=== PATIENT | male | born 1960 | race Caucasian/White ===

== ENCOUNTER 2018-03-09 06:36 | Day surgery (SDC) | payer MEDICARE ==
[2018-03-09] MEDS ORDERED: Lactated Ringers 1,000 ML IV SCH (06:45)
[2018-03-09] MEDS ORDERED: Midazolam 1 MG/ML 2 ML SDV IV ONE (08:12)
[2018-03-09] MEDS ORDERED: Propofol 200 MG/20 ML SDV IV ONE (08:12)
--- NOTE | 2018-03-09 08:16 | PCM.HPR ---
H & P Addendum review - H & P Addendum Review Date of Original H & P: 03/01/18 Date Reviewed: 03/09/18 Time Reviewed: 08:00 Patient was Examined: No Changes
--- NOTE | 2018-03-09 08:35 | PCM.OPNOTE ---
- General Post-Op/Procedure Note Date of Surgery/Procedure: 03/09/18 Operative Procedure(s): Colonoscopy Findings: Diverticulosis Pre Op Diagnosis: Hx Colon Polyps; Tics Post-Op Diagnosis: Same Anesthesia Technique: MAC Primary Surgeon: Husam Bassett Anesthesia Provider: Delia Tipton Complications: None Condition: Good
--- NOTE | 2018-03-09 09:24 | OR ---
DATE OF OPERATION: 03/09/2018 SURGEON: Husam Bassett MD PREOPERATIVE DIAGNOSES: 1. History of colon polyps. 2. Diverticulosis. POSTOPERATIVE DIAGNOSIS: Diverticulosis. PROCEDURE: Colonoscopy. ANESTHESIA: IV sedation. DESCRIPTION OF PROCEDURE: The patient was brought to the procedure room, where he was placed on his left side and IV sedation administered. Digital rectal exam was performed, which was normal. The colonoscope was inserted and advanced to the level of the cecum without difficulty. Cecal position was confirmed by identifying the appendiceal lumen and ileocecal valve. Prep was good with some thick liquid stool remaining that was mostly irrigated and suctioned. Upon withdrawing the scope, he had diverticulosis throughout the entire colon, but most notable in the sigmoid colon. There were no polyps noted. Rectum was normal and retroflexion was normal. Air was removed, and the scope withdrawn. The patient tolerated the procedure well and returned to Recovery in a stable condition. Recommend surveillance colonoscopy in 5 years. /[id number] CHIQUITA/JEREL
== END 2018-03-09 09:46 | disposition home or self-care (01) ==
LOC: FB.SDS 06:36
PROVIDERS: ATTEND Surgery
DX: Z12.11 Encounter for screening for malignant neoplasm of colon (principal); K57.30 Diverticulosis of large intestine without perforation or abscess without bleeding; I10 Essential (primary) hypertension; E55.9 Vitamin D deficiency, unspecified; F32.9 Major depressive disorder, single episode, unspecified; E78.1 Pure hyperglyceridemia; M81.0 Age-related osteoporosis without current pathological fracture; G62.9 Polyneuropathy, unspecified; J45.30 Mild persistent asthma, uncomplicated; K21.9 Gastro-esophageal reflux disease without esophagitis; M19.079 Primary osteoarthritis, unspecified ankle and foot; Q21.1 Atrial septal defect; I48.0 Paroxysmal atrial fibrillation; Z79.82 Long term (current) use of aspirin; Z79.83 Long term (current) use of bisphosphonates; Z79.899 Other long term (current) drug therapy; Z98.890 Other specified postprocedural states; Z87.19 Personal history of other diseases of the digestive system; Z85.048 Personal history of other malignant neoplasm of rectum, rectosigmoid junction, and anus
CPT/HCPCS: 00811; G0105; J2250; J2704; J7120